=== PATIENT | male | born 1985 | race Caucasian/White ===

== ENCOUNTER 2021-12-15 16:49 | Emergency (ER) | payer BC ==
[2021-12-15 17:17] LABS: Urine Blood Negative (Negative); Urine Glucose Negative (Negative); Urine Protein Negative (Negative); Urine Specific Gravity >=1.030 (1.005-1.030); Urine pH 6.5 (5.0-7.0)
[2021-12-15] MEDS ORDERED: MORPHINE 4 MG/ML SYR ONE (17:24)
[2021-12-15] MEDS ORDERED: ONDANSETRON 4 MG/2 ML VIAL ONE (17:24)
[2021-12-15] MEDS ORDERED: NA CHLORIDE 0.9% 1,000 ML ONE ×2 (17:24→20:51)
[2021-12-15 17:26] LABS: Absolute Lymphocytes (CBC) 1.9 K/uL (0.7-4.9); Hematocrit 47.7 % (39.6-49.0); Lymphocytes % 17.5 % (15.3-44.8); MPV 7.5 fL (7.6-11.3)
[2021-12-15 17:59] LABS: Albumin 4.5 g/dL (3.4-5.0); Bilirubin Total 0.6 mg/dL (0.2-1.0); Potassium 4.1 mmol/L (3.5-5.1); Protein, Total 7.8 g/dL (6.4-8.2)
--- NOTE | 2021-12-15 18:37 | RAD REPORT ---
EXAM DESCRIPTION: CTAbdomen Pelvis W Contrast - 12/15/2021 6:26 pm CLINICAL HISTORY: epigastric pain COMPARISON: No comparisons TECHNIQUE: CT of the abdomen and pelvis was performed. All CT scans are performed using dose optimization technique as appropriate and may include automated exposure control or mA/KV adjustment according to patient size. FINDINGS: Lower chest: Mild circumferential thickened distal esophagus. Liver: Hepatic steatosis. Biliary: No biliary ductal dilatation. Stomach: No significant focal abnormality. Duodenum: No significant focal abnormality. Pancreas: Diffuse peripancreatic edema. No loculated fluid collections. The pancreas enhances homogen eously. Spleen: No significant abnormality. Adrenal: No suspicious lesions. Kidney/ureter: No hydronephrosis. No renal calculi. Retroperitoneum: No retroperitoneal adenopathy. Vascular: No aneurysm. Bowel: Normal appendix. No bowel obstruction.. Peritoneum: Small volume of free fluid in the pelvis. Bladder: Grossly unremarkable. Reproductive: No adnexal masses. Bones: No acute fracture. Grade 1 anterolisthesis of L5 on S1 with pars defects. Other: n/a IMPRESSION: Findings consistent with acute pancreatitis. No complicating features.
--- NOTE | 2021-12-15 20:37 | ER ---
Nurse's Notes [facility] Name: Martin Childs Age: 36 yrs Sex: Male : 1985 Arrival Date: 12/15/2021 Time: 16:53 Bed 16 Private MD: Diagnosis: Pancreatitis, unspecified Presentation: 12/15 16:55 Chief complaint: Patient states: I am having a sharp pain in my right lower abdomen and jb4 radiates up to below my sternum. Coronavirus screen: At this time, the client does not indicate any symptoms associated with coronavirus-19. Ebola Screen: No symptoms or risks identified at this time. Initial Sepsis Screen: Does the patient meet any 2 criteria? No. Patient's initial sepsis screen is negative. Does the patient have a suspected source of infection? Yes: Acute abdominal pain. Risk Assessment: Do you want to hurt yourself or someone else? Patient reports no desire to harm self or others. Onset of symptoms was December 15, 2021. Transition of care: patient was not received from another setting of care. 16:55 Method Of Arrival: Ambulatory jb4 16:55 Acuity: MARI 3 jb4 Historical: - Allergies: 16:56 No Known Allergies; jb4 - Home Meds: 16:56 lisinopril 20 mg Oral tab 1 tab once daily [Active]; jb4 - PMHx: 16:56 HTN; Gout; jb4 - PSHx: 16:56 None; jb4 - Immunization history:: Adult Immunizations up to date. - Social history:: Smoking status: Patient denies any tobacco usage or history of. Patient uses alcohol, weekly. Patient/guardian denies using street drugs. Screenin:27 Abuse screen: Denies threats or abuse. Denies injuries from another. Nutritional jh6 screening: No deficits noted. Tuberculosis screening: No symptoms or risk factors identified. Fall Risk IV access (20 points). Assessment: 17:26 General: Appears uncomfortable, Behavior is calm, cooperative. Pain: Complains of pain jh6 in epigastric area Pain radiates to right lower quadrant Pain currently is 7 out of 10 on a pain scale. Quality of pain is described as crampy, shooting, Pain began suddenly, 4 hours ago. Is continuous, Aggravated by increased activity, repositioning. GI: Bowel sounds present X 4 quads. Abdomen is tender to palpation in epigastric area Guarding noted in epigastric area. 19:33 Reassessment: Patient appears in no apparent distress at this time. I recv'd report on nando the pt in room #16. He is to be transferred to [facility], as we don't have an US. The pt is resting comfortably with his at bedside. I copied off the SBAR, so I may give report when they accept the pt. 20:33 Reassessment: The US tech is here, as she said she was called to another pt's bs. The nando pt is presently having his exam. Awaiting results. 20:54 Reassessment: The pt's chart still says "transfer", but I'll wait to see if the US exam nando negates that. 21:37 Reassessment: I called [phone], to give report, and despite it ringing for 3 1/2 nando minutes, I finally got through. I am currently on hold. The provider spoke with the pt and his about the POC. 21:41 Reassessment: Report given to JOHNATHAN Mccord at [facility]. The pt signed his MOT after nando the provider spoke with him. 22:39 Reassessment: Report given to EMS for the pt's transfer. nando Vital Signs: 16:55 BP 158 / 107; Pulse 89; Resp 16; Temp 97.9(O); Pulse Ox 100% on R/A; Weight 117.93 kg jb4 (R); Height 6 ft. 2 in. (187.96 cm) (R); Pain 7/10; 19:32 BP 142 / 91; Pulse 72; Resp 16; Temp 98.6; Pulse Ox 99% on R/A; nando 20:53 BP 134 / 79; Pulse 68; Resp 16; Temp 98.6; Pulse Ox 100% on R/A; nando 21:43 BP 147 / 100; Pulse 79; Resp 18; Pulse Ox 100% on R/A; nando 22:39 BP 139 / 92; Pulse 83; Resp 16; Temp 98.4; Pulse Ox 100% on R/A; nando 16:55 Body Mass Index 33.38 (117.93 kg, 187.96 cm) jb4 ED Course: 16:53 Patient arrived in ED. mr 16:56 Triage completed. jb4 16:56 Arm band placed on right wrist. jb4 17:01 Dao Bravo PA is PHCP. jmm 17:01 Janak Martinez DO is Attending Physician. jmm 17:01 Lauren Dowell, RN is Primary Nurse. jh6 17:10 Inserted saline lock: 20 gauge in left antecubital area, using aseptic technique. Blood jh6 collected. 17:28 Bed in low position. Call light in reach. Side rails up X 1. Adult w/ patient. jh6 18:28 CT Abd/Pelvis - IV Contrast Only In Process Unspecified. EDMS 18:54 Warm blanket given. Pillow given. Pulse ox on. NIBP on. mh5 19:22 Primary Nurse role handed off by Lauren Dowell, RN mw2 19:32 More Fu, RN is Primary Nurse. nando 19:35 No provider procedures requiring assistance completed. nando 20:05 initiated a transfer with Augusta from [facility]. mw2 20:[address] PAGE with [address]. Wesley from [facility]. mw2 20:25 COVID-19 SARS RT PCR (Document "Date of Onset" if Symptomatic) Sent. nando 20:45 US Abdomen Limited In Process Unspecified. EDMS 21:11 administrative approval given by Augusta Fishman/ patient has been accepted to [address] 5th floor A 515/ Dr. Kramer accepted the patient in transfer/ report to be called to be called to [phone]. 21:43 Patient transferred, IV remains in place. nando 21:49 [facility] ETA 30 minutes. mw2 Administered Medications: 17:25 Drug: NS 0.9% 1000 ml Route: IV; Rate: 1 bolus; Site: left antecubital; jh6 17:25 Drug: Zofran (Ondansetron) 4 mg Route: IVP; Site: left antecubital; jh6 17:25 Drug: morphine 4 mg Route: IVP; Infused Over: 4 mins; Site: left antecubital; jh6 20:58 Drug: NS 0.9% 1000 ml Route: IV; Rate: 1 bolus; Site: left antecubital; nando Medication: 19:35 VIS not applicable for this client. nando Outcome: 19:35 Condition: stable nando 20:36 ER care complete, transfer ordered by . sukhwinder 21:39 Transferred nando 22:40 Patient left the ED. nando Signatures: Dispatcher [employer] EDMS Dao Bravo PA PA jmm Rivera Ivett PopeDesmond, RN RN jb4 Barbara Scott Jak Jean mw2 Lauren Dowell RN RN jh6 More Fu RN RN nando Corrections: (The following items were deleted from the chart) 21:50 21:49 [facility] ETA 20 minutes mw2 mw2
--- NOTE | 2021-12-15 20:37 | EDPHYS ---
Physician Documentation [facility] Name: Martin Childs Age: 36 yrs Sex: Male : 1985 Arrival Date: 12/15/2021 Time: 16:53 Bed 16 Private MD: ED Physician Janak Martinez HPI: 12/15 17:06 This 36 yrs old Male presents to ER via Ambulatory with complaints of Abdominal Pain. [facility] 17:06 The patient presents with abdominal pain. Onset: The symptoms/episode began/occurred jmm today. The symptoms radiate to back. Associated signs and symptoms: Pertinent positives: nausea. The symptoms are described as achy. This is a 36-year-old male with history of hypertension and gout the presents emerged part with complaints of acute onset epigastric pain beginning after eating just prior to arrival. Denies vomiting or diarrhea. Patient states to having heavy drinking over the past weekend. . Historical: - Allergies: 16:56 No Known Allergies; jb4 - Home Meds: 16:56 lisinopril 20 mg Oral tab 1 tab once daily [Active]; jb4 - PMHx: 16:56 HTN; Gout; jb4 - PSHx: 16:56 None; jb4 - Immunization history:: Adult Immunizations up to date. - Social history:: Smoking status: Patient denies any tobacco usage or history of. Patient uses alcohol, weekly. Patient/guardian denies using street drugs. ROS: 17:06 Constitutional: Negative for fever, chills, and weight loss, Cardiovascular: Negative jm for chest pain, palpitations, and edema, Respiratory: Negative for shortness of breath, cough, wheezing, and pleuritic chest pain. 17:06 Abdomen/GI: Positive for abdominal pain, nausea. 17:06 All other systems are negative. Exam: 17:06 Constitutional: This is a well developed, well nourished patient who is awake, alert, jmm and in no acute distress. Head/Face: atraumatic. Eyes: EOMI, no conjunctival erythema appreciated ENT: Moist Mucus Membranes Neck: Trachea midline, Supple Chest/axilla: Normal chest wall appearance and motion. Cardiovascular: Regular rate and rhythm. No edema appreciated Respiratory: Normal respirations, no respiratory distress appreciated 17:06 Back: Normal ROM Skin: General appearance color normal MS/ Extremity: Moves all extremities, no obvious deformities appreciated, no edema noted to the lower extremities Neuro: Awake and alert Psych: Behavior is normal, Mood is normal, Patient is cooperative and pleasant 17:06 Abdomen/GI: Inspection: abdomen appears normal, Bowel sounds: normal, Palpation: soft, mild abdominal tenderness, in the epigastric area. Vital Signs: 16:55 BP 158 / 107; Pulse 89; Resp 16; Temp 97.9(O); Pulse Ox 100% on R/A; Weight 117.93 kg jb4 (R); Height 6 ft. 2 in. (187.96 cm) (R); Pain 7/10; 19:32 BP 142 / 91; Pulse 72; Resp 16; Temp 98.6; Pulse Ox 99% on R/A; nando 20:53 BP 134 / 79; Pulse 68; Resp 16; Temp 98.6; Pulse Ox 100% on R/A; nando 21:43 BP 147 / 100; Pulse 79; Resp 18; Pulse Ox 100% on R/A; nando 22:39 BP 139 / 92; Pulse 83; Resp 16; Temp 98.4; Pulse Ox 100% on R/A; nando 16:55 Body Mass Index 33.38 (117.93 kg, 187.96 cm) jb4 MDM: 17:06 Patient medically screened. [facility] 20:32 Data reviewed: vital signs, nurses notes. Counseling: I had a detailed discussion with sukhwinder the patient and/or guardian regarding: the historical points, exam findings, and any diagnostic results supporting the discharge/admit diagnosis, lab results, radiology results, the need to transfer to another facility. ED course: Unfortunately, we do not have access to US for further evaluation for choledocolithiasis. No GI coverage. I discussed this with the patient and his whom have a preference to be transferred to [facility]. I discussed the patient with Dr. Magaña whom accepted the patient to her service. . 12/15 17:07 Order name: CBC with Diff; Complete Time: 17:40 [facility] 12/15 17:07 Order name: CMP; Complete Time: 18:04 [facility] 12/15 17:07 Order name: Lipase; Complete Time: 18:04 [facility] 12/15 17:08 Order name: US Abdomen Limited; Complete Time: 21:36 [facility] 12/15 17:18 Order name: Urine Dipstick-Ancillary; Complete Time: 17:40 [facility]NE 12/15 20:08 Order name: COVID-19 SARS RT PCR (Document "Date of Onset" if Symptomatic); Complete mw2 Time: 21:36 12/15 17:07 Order name: IV Saline Lock; Complete Time: 17:25 [facility] 12/15 17:07 Order name: Labs collected and sent; Complete Time: 17:25 [facility] 12/15 17:08 Order name: Urine Dipstick-Ancillary (obtain specimen); Complete Time: 17: [facility] 12/15 17:12 Order name: CT Abd/Pelvis - IV Contrast Only; Complete Time: 18:42 [facility] Administered Medications: 17:25 Drug: NS 0.9% 1000 ml Route: IV; Rate: 1 bolus; Site: left antecubital; [facility] 17:25 Drug: Zofran (Ondansetron) 4 mg Route: IVP; Site: left antecubital; [facility] 17:25 Drug: morphine 4 mg Route: IVP; Infused Over: 4 mins; Site: left antecubital; 6 20:58 Drug: NS 0.9% 1000 ml Route: IV; Rate: 1 bolus; Site: left antecubital; nando Disposition: 21:27 Co-signature as Attending Physician, Janak FRASER was immediately available on-site ms3 in the Emergency Department for consultation in the care of the patient. . Disposition Summary: 12/15/21 20:36 Transfer Ordered Transfer Location: Other Acute Care Facility [facility] Reason: Higher level of care [facility] Condition: Stable [facility] Problem: new [facility] Symptoms: are unchanged [facility] Accepting Physician: Dr. Vides(12/15/21 22:40) nando Diagnosis - Pancreatitis, unspecified [facility] Discharge Instructions: - Discharge Summary Sheet 6 Forms: - Medication Reconciliation Form [facility] - SBAR form 6 Signatures: Dispatcher [employer] EDMS Dao Bravo PA PA jmm Bryson, James, RN RN jb4 Janak Martinez DO DO ms3 Lauren Dowell RN RN 6 More Fu RN RN bo Corrections: (The following items were deleted from the chart) 22:40 20:36 Dr. Pending sale to [facility]
--- NOTE | 2021-12-15 21:14 | RAD REPORT ---
EXAM DESCRIPTION: US - Abdomen Exam Limited - 12/15/2021 8:43 pm CLINICAL HISTORY: ABD PAIN COMPARISON: Abdomen Pelvis W Contrast dated 12/15/2021 FINDINGS: The gallbladder demonstrates a single 5 mm gallstone. No pericholecystic fluid or gallblad nyasia wall thickening. The common bile duct is normal measuring 4 mm. The liver demonstrates hepatic steatosis . IMPRESSION: Cholelithiasis without sonographic evidence acute cholecystitis. No biliary duct dilatat ion. Hepatic steatosis .
[2021-12-15 23:08] VITALS: O2SAT 100
[2021-12-15 23:11] VITALS: BP 139/92; TEMP 98.4
== END 2021-12-15 22:40 ==
LOC: ER 16:49
DX: K85.90 Acute pancreatitis without necrosis or infection, unspecified (principal); R11.0 Nausea; I10 Essential (primary) hypertension; Z20.822 Contact with and (suspected) exposure to COVID-19
CPT/HCPCS: 85025; 36415; 81003; 83690; 80053; 74177; 76705; 96375; 96374; 99285; U0003; Q9967; J7030 ×2; J2405